=== PATIENT | female | born 1955 | race Caucasian/White ===

== ENCOUNTER → 2016-04-28 | Outpatient (CLI) | payer OTHER ==
[~2016-04-28] MED LIST: ALBUTEROL17 GM INH; ASPIRIN PO; CRESTOR PO; FLOMAX0.4 M1 PO; HCTZ PO; MEDROL PO; MULTI-VITAMIN1 TAB PO; NAPROSYN500 MG PO; PREDNISONE PO; SKELAXIN PO; ZITHROMAX PO; ZOCOR PO
--- NOTE | ~2016-04-28 | CR7 ---
[facility]. [facility] A Service of [facility] & [facility] RADIOLOGY TEXT RESULTS PATIENT: MEENA CASTLE LOCATION: [facility] : 59 UNIT #: [id number] AGE: [address]: Alex Major MD SEX: F ORDER DR: [id number] [address] [address] [id number] O MR#: [id number] Acc #: [id number] NAME: MEENA CASTLE : 1955 SEX: F STUDY DATE/TIME: 04/28/2016 9:46 UNIT: [facility] ROOM: STUDY DESCRIPTION: CR Abdomen Single AP View Attending Physician: Alex Major M.D. Ordering Physician: Alex Major M.D. Primary Care Physician: Josesito Carroll M.D. MEDICAL IMAGING REPORT This report is preliminary unless electronic signature is present. EXAM Portable abdomen. DATE OF EXAM 04/28/2016 HISTORY Kidney stones. A left ureteral stent placed in March of 2016. FINDINGS Left double pigtail ureteral stent extends from the level of the left renal pelvis to the urinary bladder. No urinary calculi are identified. The bowel gas pattern is normal. Surgical clips in the right upper quadrant. IMPRESSION 1. Left double pigtail ureteral stent in satisfactory position. 2. No urinary calculi are identified. 3. Normal bowel gas pattern. Dictated by... Juan Manuel Wilder M.D. THIS IS AN ELECTRONICALLY VERIFIED REPORT Juan Manuel Wilder M.D. at 04/28/2016 11:29 PM YI/ramona TD: 04/28/2016 20:52 JOB #: [id number] MEDICAL IMAGING REPORT
== END | disposition home or self-care (01) ==
LOC: SRAD 09:39
DX: N20.0 Calculus of kidney (principal); Z96.0 Presence of urogenital implants
CPT/HCPCS: 74000

== ENCOUNTER → 2016-06-05 | Outpatient (CLI) | payer OTHER ==
--- NOTE | ~2016-06-05 | CR7 ---
[facility] A Service of [facility] & [facility] RADIOLOGY TEXT RESULTS PATIENT: MEENA CASTLE LOCATION: [facility] : 59 UNIT #: [id number] AGE: [address]: Durga Gallegos MD SEX: F ORDER DR: [id number] [facility] [address] [place], [place] [address] [id number] O MR#: [id number] Acc #: [id number] NAME: MEENA CASTLE. : 1955 SEX: F STUDY DATE/TIME: 06/05/2016 9:07 UNIT: [facility] ROOM: STUDY DESCRIPTION: CR Abdomen Single AP View Attending Physician: Durga Gallegos M.D. Referring Physician: Durga Gallegos M.D. Ordering Physician: Durga Gallegos M.D. Primary Care Physician: Josesito Carroll M.D. MEDICAL IMAGING REPORT This report is preliminary unless electronic signature is present EXAM KUB INDICATIONS Left-sided lithotripsy and stent placement. The stent was placed in 2016. FINDINGS Comparison made to a prior exam April 25, 2016. Patient has a left-sided double-J ureteral stent which I do not think appears significantly changed in position when compared to the prior examination. No definite radiopaque urinary stones are seen. Gallbladder is surgically absent. Bowel gas pattern is unremarkable. IMPRESSION Stable appearance to the patient's double J ureteral stent on the left. No radiopaque urinary stones are seen. Dictated by... Pamela Gannon M.D. THIS IS AN ELECTRONICALLY VERIFIED REPORT Pamela Gannon M.D. at 06/05/2016 4:33 PM AFF/dj TD: 06/05/2016 10:54 JOB #: [id number] MEDICAL IMAGING REPORT Page 1 of 1 COPY
== END | disposition home or self-care (01) ==
LOC: CRAD 08:56
DX: N20.0 Calculus of kidney (principal)
CPT/HCPCS: 74000

== ENCOUNTER → 2016-07-03 | Outpatient (CLI) | payer OTHER ==
--- NOTE | ~2016-07-03 | US77 ---
[facility] A Service of [facility] & [facility] RADIOLOGY TEXT RESULTS PATIENT: MEENA CASTLE LOCATION: [facility] : 59 UNIT #: [id number] AGE: [address]: Alex Major MD SEX: F ORDER DR: [id number] [address] [address] [id number] O MR#: [id number] Acc #: [id number] NAME: MEENA CASTLE. : 1955 SEX: F STUDY DATE/TIME: 07/03/2016 13:41 UNIT: [facility] ROOM: STUDY DESCRIPTION: US Kidney Bilateral Complete Attending Physician: Alex Major M.D. Referring Physician: Alex Major M.D. Ordering Physician: Alex Major M.D. Primary Care Physician: Josesito Carroll M.D. MEDICAL IMAGING REPORT This report is preliminary unless electronic signature is present. EXAM Renal ultrasound. INDICATION Renal stones, status post multiple lithotripsies, most recent one in March 2016. Patient underwent placement of double-J ureteral stent on the left. TECHNIQUE Ovalle-scale and color Doppler sonographic images were obtained through the kidneys and bladder. FINDINGS Urinary bladder appears unremarkable. No hydronephrosis is identified on either side. The patient has a right renal cyst measuring 1.6 x 1.4 x 1.5 cm. Staff Rn measures several hyperechoic structures within both kidneys. This certainly could reflect nonobstructing stones, although, I do not really see any significant shadowing. Potential stone on the right measures 1.0 x 0.6 x 0.9 cm, 2 stones on the left measure 1.6 x 1.4 x 1.1 cm and 1.2 x 0.7 x 1.1 cm. IMPRESSION 1. No evidence of hydronephrosis on either side. Staff Rn does measure bilateral hyperechoic structures which certainly could reflect renal calculi, although, they do not show any significant shadowing on the submitted images. CT would be much more sensitive for evaluation. Again, however, there is no evidence of hydronephrosis. 2. Right renal cyst. Dictated by... Pamela Gannon M.D. [facility] A Service of [facility] RADIOLOGY TEXT RESULTS PATIENT: MEENA CASTLE LOCATION: [facility] : 59 UNIT #: [id number] AGE: [address]: Alex Major MD SEX: F ORDER DR: THIS IS AN ELECTRONICALLY VERIFIED REPORT Pamela Gannon M.D. at 07/05/2016 7:48 AM ANTOINETTE/ramona TD: 07/04/2016 17:22 JOB #: [id number] MEDICAL IMAGING REPORT Page 1 of 1
== END | disposition home or self-care (01) ==
LOC: SGUS 13:33
DX: N20.0 Calculus of kidney (principal); N28.1 Cyst of kidney, acquired
CPT/HCPCS: 76775